=== PATIENT | male | born 1960 | race Caucasian/White ===

== ENCOUNTER 2023-02-22 12:37 | Outpatient (CLI) | payer MEDICARE, SELFPAY ==
--- NOTE | 2023-02-22 | DI.NM_ITS ---
Exam(s) NM BONE SCAN WHOLE BODY GRP EXAM: NM BONE SCAN WHOLE BODY GRP CLINICAL HISTORY: PROSTATE CA,C61,NEW DIAGNOSIS. TECHNIQUE: Injected Dose: 25 mCi Tc-99m MDP Delayed Images: 2-3 hours. COMPARISON: No exams were available for comparison FINDINGS: Increased activity corresponding to the right acromioclavicular joint as well as right sternoclavicul ar joint, consistent with degenerative changes. Mildly increased activity in the medial left knee co nsistent with degenerative changes. Mildly increased activity in both superior acetabula, also likel y representing degenerative changes. Increased activity in the the anterior ribs at the region of th e costal cartilage. Bilateral renal excretion is identified. No focal area of intense suspicious [place] is seen. IMPRESSION: No findings to suggest metastatic disease. Areas of increased activity consistent with degenerative changes. DATA REPOSITORY:
== END 2023-02-22 12:57 ==
PROVIDERS: PCP Family Medicine; Visit Provider Surgery
DX: C61 Malignant neoplasm of prostate (principal); M13.89 Other specified arthritis, multiple sites
CPT/HCPCS: 78306

== ENCOUNTER 2023-05-29 01:54 | Outpatient (RCR) | payer MEDICARE, SELFPAY ==
[2023-05-22] MEDS: Normal Saline Flush 10 ML SYR IVP (11:51)
[2023-05-22] MEDS: DALBAVANCIN 1,500 MG in DEXTROSE 5%-WATER 325 ML 650 MG IVPB (12:42)
[2023-05-29] MEDS: DALBAVANCIN 1,500 MG in DEXTROSE 5%-WATER 325 ML 650 MG IVPB (12:34)
== END 2023-05-29 23:59 | disposition home or self-care (01) ==
LOC: INF 01:54
PROVIDERS: PCP Family Medicine; Visit Provider Nurse Practitioner Acute Care
DX: M86.9 Osteomyelitis, unspecified (principal)
CPT/HCPCS: 96365; J0875

== ENCOUNTER 2024-04-19 13:21 | Outpatient (CLI) | payer MEDICARE, SELFPAY ==
[2024-04-22 13:22] LABS: PSA, Ultrasensitive <0.01 ng/mL (<= 4.5)
== END 2024-04-19 13:22 | disposition home or self-care (01) ==
PROVIDERS: PCP Family Medicine; Visit Provider Radiology Radiation Oncology
DX: C61 Malignant neoplasm of prostate (principal)
CPT/HCPCS: 36415; 84153

== ENCOUNTER 2024-10-10 03:34 | Outpatient (CLI) | payer MEDICARE, SELFPAY ==
[2024-10-10 12:09] LABS: Abs Immature Grans 0.02 10^3/uL (0.0-0.06); Absolute Basophil Count 0.04 10^3/uL (0.0-0.2); Absolute Eosinophil Count 0.15 10^3/uL (0.0-0.7); Absolute Lymphocyte Count 0.47 10^3/uL (1.2-3.4); Absolute Monocyte Count 0.49 10^3/uL (0.1-0.8); Absolute Neutrophil Count 4.78 10^3/uL (1.2-6.7); Basophils % 0.7 %; Eosinophils % 2.5 %; HCT 32.2 % (40.0-50.0); Immature Grans % 0.3 %; Lymphocytes % 7.9 %; MCHC 34.2 % (32.0-36.0); MCV 97 fL (80-95); MPV 9.5 fL (8.0-11.0); Monocytes % 8.2 %; Neutrophils % 80.4 %; Platelet Count 223 10^3/uL (130-400); RBC 3.33 10^6/uL (4.36-5.78); RDW 13.9 % (11.8-14.1); RDW-SD 48.9 fL; WBC 5.95 10^3/uL (4.4-10.8)
[2024-10-10 12:31] LABS: ALT 19 U/L (16-63); AST 15 U/L (15-37); Albumin 3.7 g/dL (3.4-5.0); Alkaline Phosphatase 152 U/L (46-116); Anion Gap 9.5 mmol/L (3-11); BUN 13 mg/dL (7-18); Bilirubin, Total 0.93 mg/dL (0.2-1.0); CO2 29.5 mmol/L (21.0-32.0); CREATININE 1.5 mg/dL (0.70-1.30); Calcium 9.3 mg/dL (8.5-10.1); Chloride 99 mmol/L (98-107); Estimated GFR 51.99 (mL/min/1.73m2); Glucose 172 mg/dL (74-106); Potassium 4.9 mmol/L (3.5-5.1); Sodium 138 mmol/L (136-145); Total Protein 7.5 g/dL (6.4-8.2)
== END 2024-10-10 03:35 | disposition home or self-care (01) ==
LOC: LBO 03:34
PROVIDERS: PCP Family Medicine; Visit Provider Colon & Rectal Surgery
DX: C61 Malignant neoplasm of prostate (principal); Z79.818 Long term (current) use of other agents affecting estrogen receptors and estrogen levels
CPT/HCPCS: 36415; 80053; 85025

== ENCOUNTER 2024-12-11 02:07 | Outpatient (CLI) | payer MEDICARE, SELFPAY ==
--- NOTE | 2024-12-11 07:30 | DI.US_ITS ---
APPROVED REPORT EXAM: Comprehensive 2D, Doppler, and color-flow Echocardiogram Patient Location: Out-Patient Office Technician: Geovany Ha RDCS (AE) Indications: Murmur Other Information Study Quality: Technically Difficult Conclusion Technically difficult and suboptimal study Concentric left ventricular hypertrophy. Ejection fraction is 60%. Wall motion is normal Normal right ventricular size and function Both atria are mildly enlarged There are no structural valvular abnormalities Mild mitral regurgitation Wall motion Left Ventricle The left ventricle is normal size. The left ventricular systolic function is normal. The left ventric ular ejection fraction is within the normal range. Moderate concentric left ventricular hypertrophy. There is normal LV segmental wall motion. There is no ventricular septal defect visualized. LVEF is 6 0% Right Ventricle The right ventricle is normal size. The right ventricular systolic function is normal. Atria Left atrium is mildly dilated. Right atrium is mildly dilated. The interatrial septum is intact with no evidence for an atrial septal defect. Aortic Valve The aortic valve is normal in structure. Aortic valve is trileaflet. No aortic regurgitation is prese nt. Mitral Valve The mitral valve is normal in structure. Mild mitral regurgitation. Tricuspid Valve The tricuspid valve is normal in structure. Trace tricuspid regurgitation. Unable to assess PA pressu re. Pulmonic Valve The pulmonary valve is normal in structure. There is no pulmonic valvular regurgitation. Great Vessels The aortic root is normal in size. Ascending aorta is not well visualized. IVC is normal in size and collapses >50% with inspiration. Pericardium There is no pericardial effusion. 2D Dimensions IVSD d PLAX 1.63 cm M: 0.6-1.2 Ao Root d 4.02 cm M: 3.1 - 3.7 LVPW d PLAX 1.58 cm M: 0.6 - 1.2 LVID d PLAX 5.67 cm M: 4.2 - 5.8 LVDs 3.82 cm M: 2.5 - 4.0 LV EF Teichholz 60.2 % FS 32.57 % LV EDV (Teich) 158.1 mL LV ESV (Teich) 62.9 mL Stroke Vol Index (Teich) 42.54 M-Mode TAPSE 2.32 cm (M/F) >1.7 Auto EF LV EDV A4C 172.8 mL LV EDV A2C 124.3 mL LV EDV BP 148.8 mL LV ESV A4C 76.8 mL LV ESV A2C 50.5 mL LV ESV BP 62.3 mL LVEF(%) A4C 55.6 % LVEF(%) A2C 59.4 % LVEF(%) BP 58.2 % LV SV A4C 96.1 ml LV SV A2C 73.8 ml LV SV BP 86.6 ml LV CO A4C 10.0 L/min LV CO A2C 7.5 L/min LV CO BP 8.8 L/min HR A4C 104.35 BPM HR A2C 101.36 BPM LV EDV Index (BP) LA Volume LA Length A4C 5.7 cm LA Length A2C 5.1 cm LA Area A4C s 17.51 cm2 LA Area A2C s 16.91 cm2 LA Vol A4C A-L 45.71 mL LA Vol A2C A-L 47.16 mL LA Vol Biplane A-L 48.8 mL LA Vol/BSA A4C A-L LA Vol/BSA A2C A-L LA Vol/BSA BP A-L 21.8 mL/m2 LA Vol A4C MOD 44.1 mL LA Vol A2C MOD 44.3 mL LA Vol BP MOD 46.0 mL RA Volume RA Area A4C 11.2 cm2 RA ESV A4C (A-L) 23.8mL RA Vol/BSA A4C A-L RA Length A4C 4.5 cm RA ESV A4C (MOD) 22.1mL LV Diastology MV E' medial 0.049 (>0.07 m/s) MV E Vmax 1.06 (0.4-1.3 m/s) MV E/E' MED 21.87 (<14) MV A Vmax 1.55 (0.4-1.3 m/s) MV E' lateral 0.118 (>0.1 m/s) E/A Ratio 0.7 MV E/E' LAT 8.98 (<14) MV E' Average 0.083 m/s MV E/E'(average) 12.73 Aortic Valve AoV Vmax 1.56 m/s LVOT Vmax 1.02 m/s AoV Peak Grad 9.8 mmHg LVOT Peak Grad 4.1 mmHg AoV Area (Vmax) 2.52 cm2 LVOT VTI 0.224 m AoV VTI 0.293 m LVOT Mean Grad 2.5 mmHg AoV Mean [place]. 1.09 m/s LVOT SV 86.87 mL AoV Mean Grad 5.3 mmHg LVOT Diam s 2.20 cm AoV Area (VTI) 2.97 cm2 AV Regurg Peak Gr. 9.76 mmHg Velocity Ratio 0.65 Mitral Valve MV DT 186 (160-240 msec) MV Vmax TIPS 1.97 m/s MV Mean Grad 6.5 (<2mmHg) MV VTI 0.407 m Pulmonary Valve PV Vmax 0.83 (0.5-1.5 m/s) RVOT Vmax 0.70 m/s PV Peak Grad 2.8 mmHg RVOT Peak Gr. 2.0 mmHg PV Mean [place] 0.56 m/s RVOT VTI 0.117 m PV Mean Grad 1.5 mmHg RVOT Mean Gr. 1.0 mmHg
== END 2024-12-11 02:27 ==
LOC: DI 02:07
PROVIDERS: PCP Family Medicine; Visit Provider Internal Medicine Cardiovascular Disease
DX: I51.7 Cardiomegaly (principal); R01.1 Cardiac murmur, unspecified
CPT/HCPCS: 93306

== ENCOUNTER 2025-01-01 08:55 | Outpatient (CLI) | payer MEDICARE, SELFPAY ==
[2025-01-01 08:39] LABS: Abs Immature Grans 0.02 10^3/uL (0.0-0.06); Absolute Basophil Count 0.05 10^3/uL (0.0-0.2); Absolute Eosinophil Count 0.18 10^3/uL (0.0-0.7); Absolute Lymphocyte Count 0.63 10^3/uL (1.2-3.4); Absolute Monocyte Count 0.49 10^3/uL (0.1-0.8); Absolute Neutrophil Count 4.36 10^3/uL (1.2-6.7); Basophils % 0.9 %; Eosinophils % 3.1 %; HCT 32.7 % (40.0-50.0); HGB 11.1 g/dL (13.5-17.5); Immature Grans % 0.3 %; MCH 32.1 pg (27.0-33.0); MCHC 33.9 % (32.0-36.0); MCV 95 fL (80-95); MPV 9.5 fL (8.0-11.0); Monocytes % 8.6 %; Neutrophils % 76.1 %; Platelet Count 248 10^3/uL (130-400); RBC 3.46 10^6/uL (4.36-5.78); RDW 13.3 % (11.8-14.1); RDW-SD 46.3 fL; WBC 5.73 10^3/uL (4.4-10.8)
[2025-01-01 08:59] LABS: ALT 17 U/L (16-63); AST 12 U/L (15-37); Albumin 3.8 g/dL (3.4-5.0); Alkaline Phosphatase 142 U/L (46-116); Anion Gap 7.4 mmol/L (3-11); BUN 14 mg/dL (7-18); Bilirubin, Total 0.72 mg/dL (0.2-1.0); CO2 31.6 mmol/L (21.0-32.0); CREATININE 1.5 mg/dL (0.70-1.30); Calcium 10.2 mg/dL (8.5-10.1); Chloride 98 mmol/L (98-107); Estimated GFR 51.99 (mL/min/1.73m2); Glucose 248 mg/dL (74-106); Potassium 4.5 mmol/L (3.5-5.1); Sodium 137 mmol/L (136-145); Total Protein 7.8 g/dL (6.4-8.2)
[2025-01-03 10:56] LABS: PSA, Ultrasensitive <0.01 ng/mL (<= 4.5)
[2025-01-07 14:33] LABS: Testosterone, Total 14 ng/dL (240-950)
== END 2025-01-01 08:56 | disposition home or self-care (01) ==
LOC: LBO 08:56
PROVIDERS: PCP Family Medicine; Visit Provider Physician Assistant
DX: C61 Malignant neoplasm of prostate (principal); Z79.818 Long term (current) use of other agents affecting estrogen receptors and estrogen levels
CPT/HCPCS: 36415; 80053; 84153; 84403; 85025

== ENCOUNTER 2025-01-30 00:54 | Outpatient (CLI) | payer MEDICARE, SELFPAY ==
--- NOTE | 2025-01-30 | DI.DEXA_ITS ---
Exam(s) XR DEXA BONE DENSITY W/WO DWAIN EXAM: XR DEXA BONE DENSITY W/WO DWAIN CLINICAL HISTORY: Z79.818,C61,Z91.89 Prostate CA on ADT w/increased risk bone density loss TECHNIQUE: COMPARISON: No exams were available for comparison FINDINGS: Lateral Spine Image: Unremarkable. No compression deformities identified. Left hip: Total T-Score: 0.3 Total Z-Score: 0.8 T- and Z-scores: Within normal limits. Lumbar Spine: Total T-Score: 3.8 Total Z-Score: 4.5 T- and Z-scores: Within normal limits. IMPRESSION: No evidence of osteoporosis.
== END 2025-01-30 01:14 ==
LOC: DI 00:54
PROVIDERS: PCP Family Medicine; Visit Provider Physician Assistant
DX: Z79.818 Long term (current) use of other agents affecting estrogen receptors and estrogen levels (principal); Z13.820 Encounter for screening for osteoporosis
CPT/HCPCS: 77080

== ENCOUNTER 2025-03-21 01:38 | Outpatient (CLI) | payer MEDICARE, SELFPAY ==
[2025-03-21 08:22] LABS: Abs Immature Grans 0.01 10^3/uL (0.0-0.06); Absolute Basophil Count 0.06 10^3/uL (0.0-0.2); Absolute Eosinophil Count 0.16 10^3/uL (0.0-0.7); Absolute Lymphocyte Count 0.62 10^3/uL (1.2-3.4); Absolute Monocyte Count 0.48 10^3/uL (0.1-0.8); Absolute Neutrophil Count 4.15 10^3/uL (1.2-6.7); Basophils % 1.1 %; Eosinophils % 2.9 %; HCT 31.7 % (40.0-50.0); HGB 10.8 g/dL (13.5-17.5); Immature Grans % 0.2 %; Lymphocytes % 11.3 %; MCH 30.9 pg (27.0-33.0); MCHC 34.1 % (32.0-36.0); MCV 91 fL (80-95); MPV 9.5 fL (8.0-11.0); Monocytes % 8.8 %; Neutrophils % 75.7 %; Platelet Count 260 10^3/uL (130-400); RBC 3.49 10^6/uL (4.36-5.78); RDW 14.2 % (11.8-14.1); WBC 5.48 10^3/uL (4.4-10.8)
[2025-03-21 08:50] LABS: ALT 18 U/L (16-63); AST 13 U/L (15-37); Albumin 3.6 g/dL (3.4-5.0); Alkaline Phosphatase 149 U/L (46-116); Anion Gap 10.6 mmol/L (3-11); BUN 16 mg/dL (7-18); Bilirubin, Total 0.5 mg/dL (0.2-1.0); CO2 29.4 mmol/L (21.0-32.0); CREATININE 1.3 mg/dL (0.70-1.30); Calcium 9.8 mg/dL (8.5-10.1); Chloride 100 mmol/L (98-107); Estimated GFR 61.35 (mL/min/1.73m2); Glucose 203 mg/dL (74-106); Potassium 4.4 mmol/L (3.5-5.1); Sodium 140 mmol/L (136-145); Total Protein 7.5 g/dL (6.4-8.2)
[2025-03-25 13:49] LABS: PSA, Ultrasensitive <0.01 ng/mL (<= 4.5)
[2025-03-26 12:33] LABS: Testosterone, Total 13 ng/dL (240-950)
== END 2025-03-21 01:39 | disposition home or self-care (01) ==
LOC: LBO 01:38
PROVIDERS: PCP Family Medicine; Visit Provider Physician Assistant
DX: C61 Malignant neoplasm of prostate (principal); Z79.818 Long term (current) use of other agents affecting estrogen receptors and estrogen levels
CPT/HCPCS: 36415; 80053; 84153; 84403; 85025

== ENCOUNTER 2025-06-23 14:28 | Outpatient (CLI) | payer MEDICARE, SELFPAY ==
[2025-06-23 10:19] LABS: Abs Immature Grans 0.03 10^3/uL (0.0-0.06); HCT 29.6 % (40.0-50.0); HGB 9.8 g/dL (13.5-17.5); Immature Grans % 0.6 %; MCH 30.1 pg (27.0-33.0); MCHC 33.1 % (32.0-36.0); MCV 91 fL (80-95); MPV 9.8 fL (8.0-11.0); Platelet Count 261 10^3/uL (130-400); RBC 3.26 10^6/uL (4.36-5.78); RDW 14.6 % (11.8-14.1); RDW-SD 48.1 fL; WBC 5.05 10^3/uL (4.4-10.8)
[2025-06-23 11:07] LABS: ALT 22 U/L (16-63); AST 16 U/L (15-37); Albumin 3.8 g/dL (3.4-5.0); Alkaline Phosphatase 129 U/L (46-116); Anion Gap 12.2 mmol/L (3-11); BUN 21 mg/dL (7-18); Bilirubin, Total 0.7 mg/dL (0.2-1.0); CO2 26.8 mmol/L (21.0-32.0); Calcium 9.8 mg/dL (8.5-10.1); Chloride 101 mmol/L (98-107); Estimated GFR 67.53 (mL/min/1.73m2); Glucose 172 mg/dL (74-106); Potassium 4.1 mmol/L (3.5-5.1); Sodium 140 mmol/L (136-145); Total Protein 7.5 g/dL (6.4-8.2)
== END 2025-06-23 14:29 | disposition home or self-care (01) ==
LOC: LBO 14:28
PROVIDERS: PCP Family Medicine; Visit Provider Physician Assistant
DX: C61 Malignant neoplasm of prostate (principal)
CPT/HCPCS: 36415; 80053; 84153; 84403; 85025

== ENCOUNTER 2025-09-18 11:32 | Outpatient (CLI) | payer MEDICARE, SELFPAY ==
[2025-09-18 10:38] LABS: Abs Immature Grans 0.01 10^3/uL (0.0-0.06); HCT 30.2 % (40.0-50.0); HGB 10.4 g/dL (13.5-17.5); Immature Grans % 0.2 %; MCH 31.1 pg (27.0-33.0); MCHC 34.4 % (32.0-36.0); MCV 90 fL (80-95); MPV 9.4 fL (8.0-11.0); Platelet Count 281 10^3/uL (130-400); RBC 3.34 10^6/uL (4.36-5.78); RDW 14.0 % (11.8-14.1); RDW-SD 46.5 fL; WBC 5.55 10^3/uL (4.4-10.8)
[2025-09-18 11:38] LABS: ALT 12 U/L (10-49); AST 13 U/L (<34); Albumin 4.3 g/dL (3.4-5.0); Alkaline Phosphatase 142 U/L (46-116); Anion Gap 8.8 mmol/L (3-11); BUN 22 mg/dL (9-23); Bilirubin, Total 0.60 mg/dL (0.2-1.2); CO2 24.2 mmol/L (20.0-31.0); Calcium 9.2 mg/dL (8.3-10.6); Chloride 103 mmol/L (98-107); Glucose 313 mg/dL (74-106); Potassium 4.5 mmol/L (3.5-5.1); Sodium 136 mmol/L (136-145); Total Protein 6.9 g/dL (5.7-8.2)
== END 2025-09-18 11:33 | disposition home or self-care (01) ==
LOC: LBO 11:32
PROVIDERS: PCP Family Medicine; Visit Provider Physician Assistant
DX: Z79.818 Long term (current) use of other agents affecting estrogen receptors and estrogen levels (principal)
CPT/HCPCS: 36415; 80053; 84153; 84403; 85025